=== PATIENT | male | born 1955 | race Caucasian/White ===

== ENCOUNTER 2020-11-17 23:45 | Emergency (ER) | payer MEDICARE, OTHER ==
[~2020-11-17] VITALS: Ht 172.7 cm; Wt 78.0 kg
[2020-11-17 23:50] VITALS: BP 131/76
[2020-11-18] MEDS ORDERED: CEFU500T66 PO (00:13)
== END 2020-11-18 00:42 | disposition home or self-care (01) ==
LOC: ER 23:51
DX: L03.012 Cellulitis of left finger (principal); I10 Essential (primary) hypertension

== ENCOUNTER 2021-09-28 21:29 | Emergency (ER) | payer MEDICARE, OTHER ==
[~2021-09-28] VITALS: Ht 167.6 cm; Wt 88.5 kg
[~2021-09-28 21:29] MED LIST: CEFU500T66 PO
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
[2021-09-28] MEDS ORDERED: LIDOCAINE HCL/PF 1% 30 ML SDV ONE (23:51)
[2021-09-28] MEDS ORDERED: TDAP [DIPH/PERTUSSIS/TET] 0.5 ML VIAL IM ONE (23:52)
[2021-09-29] MEDS ORDERED: TDAP [DIPH/PERTUSSIS/TET] 0.5 ML VIAL IM ONE
--- NOTE | 2021-09-29 | NUR ---
WOUND CARE DONE TO PT'S R THUMB
--- NOTE | 2021-09-29 00:29 | NUR ---
STITCHES TO PT'S R THUMB DONE
--- NOTE | 2021-09-29 00:45 | NUR ---
Patient discharged to home in stable condition. Written and verbal after care instructions given. Patient verbalizes understanding of instruction.
[2021-09-29 00:46] VITALS: BP 144/90
== END 2021-09-29 00:47 | disposition home or self-care (01) ==
LOC: ER 21:31
DX: S61.011A Laceration without foreign body of right thumb without damage to nail, initial encounter (principal); I10 Essential (primary) hypertension; E11.9 Type 2 diabetes mellitus without complications; Z79.899 Other long term (current) drug therapy; W26.0XXA Contact with knife, initial encounter; Y93.89 Activity, other specified; Y92.89 Other specified places as the place of occurrence of the external cause; Y99.8 Other external cause status
CPT/HCPCS: 12001; 90471; 90715; 99283; A6403; J3490

== ENCOUNTER 2021-10-26 21:41 | Emergency (ER) | payer MEDICARE, OTHER ==
[~2021-10-26] VITALS: Ht 167.6 cm; Wt 85.7 kg
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
--- NOTE | 2021-10-26 22:25 | NUR ---
SEEN BY SHELBY SHANNON AT BEDSIDE
[2021-10-26] MEDS ORDERED: ACETAMINOPHEN 325 MG TABLET PO ONE (22:30)
--- NOTE | 2021-10-26 22:52 | NUR ---
SHELBY CAPELLAN FOR DR. RAYA ON THE PHONE WITH SHELBY SHANNON FOR ORTHO CONSULT.
[2021-10-26] MEDS ORDERED: ACETAMINOPHEN 325 MG TABLET ONE (22:56)
--- NOTE | 2021-10-26 23:55 | NUR ---
Patient discharged to home in stable condition. Written and verbal after care instructions given. Patient verbalizes understanding of instruction.
[2021-10-27 00:10] VITALS: BP 137/63
== END 2021-10-27 00:10 | disposition home or self-care (01) ==
LOC: ER 21:44
DX: S52.255A Nondisplaced comminuted fracture of shaft of ulna, left arm, initial encounter for closed fracture (principal); I10 Essential (primary) hypertension; E11.9 Type 2 diabetes mellitus without complications; W01.0XXA Fall on same level from slipping, tripping and stumbling without subsequent striking against object, initial encounter; Y93.89 Activity, other specified; Y92.89 Other specified places as the place of occurrence of the external cause; Y99.8 Other external cause status
CPT/HCPCS: 73090-TC

== ENCOUNTER 2022-10-05 07:48 | Emergency (ER) | payer MEDICARE, OTHER ==
[~2022-10-05] VITALS: Ht 170.2 cm; Wt 86.2 kg
--- NOTE | 2022-10-05 08:11 | NUR ---
THE PATIENT BIBS FOR C/O LOWER ABDOMINAL PAIN, BLOATING X 2 DAYS. THE PATIENT RATES PAIN 4/10. WILL CONTINUE TO MONITOR THE PATIENT.
--- NOTE | 2022-10-05 08:43 | NUR ---
IV LINE IS ESTABLISHED, BLOOD SPECIMEN COLLECTED AND SENT TO THE LAB. THE LINE IS SALINE LOCKED.
--- NOTE | 2022-10-05 08:47 | NUR ---
URINE COLLECTED AND SENT TO THE LAB
[2022-10-05 08:59] LABS: BASOPHILS # (AUTO) 0.1 K/uL (0.0-0.2); BASOPHILS % (AUTO) 0.8 % (0.0-2.0); EOSINOPHILS % (AUTO) 1.5 % (0.0-6.0); HEMATOCRIT 43 % (39-51); HEMOGLOBIN 13.8 g/dL (13.5-17.5); LYMPHOCYTES # (AUTO) 1.4 K/uL (0.8-4.8); LYMPHOCYTES % (AUTO) 19.6 % (20.0-44.0); MEAN CORPUSCULAR HGB CONC 32 g/dl (31.0-36.0); MEAN CORPUSCULAR VOLUME 83 fL (80-96); MONOCYTES # (AUTO) 0.6 K/uL (0.1-1.30); NEUTROPHILS # (AUTO) 4.9 K/uL (1.8-8.9); NEUTROPHILS % (AUTO) 69.1 % (43.0-81.0); PLATELET COUNT (AUTO) 161 K/uL (150-450); RED BLOOD CELL COUNT(AUTO) 5.11 MIL/uL (4.5-6.0); WHITE BLOOD COUNT (AUTO) 7.2 K/uL (4.3-11.0)
[2022-10-05 09:11] LABS: BILIRUBIN,URINE NEGATIVE (NEGATIVE); COLOR,URINE YELLOW (YELLOW); LEUKOCYTE ESTERASE ,URINE NEGATIVE (NEGATIVE); NITRITE, URINE NEGATIVE (NEGATIVE); PROTEIN,URINE 2+ mg/dl (NEGATIVE); UGLUCOSE NEGATIVE (NEGATIVE); UROBILINOGEN,URINE 0.2 EU/dL (0.2)
[2022-10-05 09:12] LABS: ALBUMIN 3.8 g/dL (3.4-5.0); BILIRUBIN,DIRECT 0.1 mg/dL (0.0-0.2); BILIRUBIN,TOTAL 0.7 mg/dL (0.2-1.0); CALCIUM, SERUM 9.6 mg/dL (8.5-10.1); CREATININE 0.8 mg/dL (0.6-1.3); POTASSIUM 4.6 mmol/L (3.5-5.1); TOTAL PROTEIN, SERUM 8.1 g/dL (6.4-8.2)
[2022-10-05 09:24] LABS: BACTERIA,URINE Rare /HPF (None Seen); SQUAMOUS EPITHELIAL CELL,UR Rare /HPF (None Seen); WBC,URINE 0-2 /HPF (0-3)
[2022-10-05] MEDS ORDERED: TAMS-12 PO (10:01)
[2022-10-05] MEDS ORDERED: HYDR-4209 PO (10:01)
[2022-10-05 10:12] VITALS: BP 135/75
--- NOTE | 2022-10-05 10:12 | NUR ---
IV removed. Catheter intact and site benign. Pressure and 4x4 applied to site. No bleeding noted.Patient discharged to home in stable condition. Written and verbal after care instructions given. Patient verbalizes understanding of instruction. The patient is picked up by family member.
== END 2022-10-05 10:13 | disposition home or self-care (01) ==
LOC: ER 08:23
DX: N23 Unspecified renal colic (principal); K74.60 Unspecified cirrhosis of liver; I10 Essential (primary) hypertension; E11.9 Type 2 diabetes mellitus without complications; Z79.899 Other long term (current) drug therapy
CPT/HCPCS: 36415; 80048-TC; 80076-TC; 81001; 83690-TC; 85025-TC